=== PATIENT | female | born 1985 | race Caucasian/White ===

== ENCOUNTER 2016-06-17 15:49 | Outpatient (CLI) | payer OTHER ==
--- NOTE | 2016-06-17 18:43 | DIAGNOSTIC IMAGING REPORT ---
PROCEDURE: US OB 1ST TRIMESTER W/TRANSVAG INDICATION: NO HEART TONES TECHNIQUE: Lopez scale, color, and spectral Doppler transabdominal and endovaginal sonographic images of the first trimester gravid uterus were obtained. COMPARISON: None. FINDINGS: TRANSABDOMINAL SCANS: Nondiagnostic without a filled urinary bladder. TRANSVAGINAL SCANS: The cervix is closed. There is a fundal gestational sac containing parts. Malakoff-rump length of the fetus measures 24.3 mm corresponding to a 6-kofx-0-day gestation. No heart tones were detected and despite 3-5 minutes of observation. No perigestational hemorrhage. The right ovary was not seen. The left ovary contains an 18 mm involuting corpus luteum. IMPRESSION: 1. Findings consistent with demise at 9 weeks 1 day gestation. 2. Closed cervix and no perigestational hemorrhage at this point. 3. Findings called to Dr. Curiel.
--- NOTE | 2016-06-17 18:43 | DIAGNOSTIC IMAGING REPORT ---
PROCEDURE: US OB 1ST TRIMESTER W/TRANSVAG INDICATION: NO HEART TONES TECHNIQUE: Lopez scale, color, and spectral Doppler transabdominal and endovaginal sonographic images of the first trimester gravid uterus were obtained. COMPARISON: None. FINDINGS: TRANSABDOMINAL SCANS: Nondiagnostic without a filled urinary bladder. TRANSVAGINAL SCANS: The cervix is closed. There is a fundal gestational sac containing parts. Maxbass-rump length of the fetus measures 24.3 mm corresponding to a 0-ovbw-9-day gestation. No heart tones were detected and despite 3-5 minutes of observation. No perigestational hemorrhage. The right ovary was not seen. The left ovary contains an 18 mm involuting corpus luteum. IMPRESSION: 1. Findings consistent with demise at 9 weeks 1 day gestation. 2. Closed cervix and no perigestational hemorrhage at this point. 3. Findings called to Dr. Curiel.
== END 2016-06-17 23:00 ==
LOC: US SRH 15:49
DX: O02.1 Missed abortion (principal)